=== PATIENT | male | born 1995 | race Caucasian/White ===

== ENCOUNTER 2018-12-18 23:29 | Emergency (ER) | payer OTHER ==
[2018-12-19] MEDS: IBUPROFEN 600 MG TAB PO (02:34)
[2018-12-19] MEDS: ACETAMINOPHEN 500 MG TAB PO (02:34)
== END 2018-12-19 02:37 | disposition home or self-care (01) ==
LOC: FTE 23:29
DX: B34.9 Viral infection, unspecified (principal)
CPT/HCPCS: 99283